=== PATIENT | female | born 1980 | race Caucasian/White ===

== ENCOUNTER → 2016-10-18 | Outpatient (CLI) | payer MEDICARE, OTHER ==
--- NOTE | 2016-10-19 12:09 | MM ---
Reason for exam: screening (asymptomatic). Baseline mammogram. History: Took hormonal contraceptives for 11 years. Physical Findings: Nurse did not find any significant physical abnormalities on exam. MG 3D Screening Mammo W/Cad Bilateral CC and MLO view(s) were taken. The breast tissue is heterogeneously dense. This may lower the sensitivity of mammography. There is no discrete abnormality. ASSESSMENT: Benign, BI-RAD 2 RECOMMENDATION: Routine screening mammogram of both breasts at age 41.
== END | disposition home or self-care (01) ==
LOC: RADMAMWWP 13:08
PROVIDERS: ATTEND Internal Medicine
DX: Z12.31 Encounter for screening mammogram for malignant neoplasm of breast (principal)
CPT/HCPCS: 77063; G0202

== ENCOUNTER → 2018-05-29 | Outpatient (CLI) | payer MEDICARE, OTHER ==
--- NOTE | 2018-05-29 12:00 | MR ---
EXAMINATION TYPE: MR lumbar spine wo con DATE OF EXAM: 05/29/2018 COMPARISON: 08/18/2014, 09/21/2011 HISTORY: Cervicalgia / PAIN IN NECK, TSP, LSP AND SHOULDER TECHNIQUE: T1 and T2 axial and sagittal images of the lumbar spine are submitted. FINDINGS: There is no abnormal signal seen within the visualized spinal cord or paraspinal soft tissu es. At L1-2 there is no disc herniation, canal stenosis, or foraminal encroachment. No degenerative disc disease. At L2-3 there is no disc herniation, canal stenosis, or foraminal encroachment. No degenerative disc disease. At L3-4 there is no disc herniation, canal stenosis, or foraminal encroachment. No degenerative disc disease. At L4-5 there is there is stable central disc bulging. Mild effacement of thecal sac but no central s tenosis. At L5-S1 there is stable central disc bulging with facet arthropathy but no canal stenosis. Neural fo ramina are patent bilaterally. IMPRESSION: 1. Stable disc bulging L5-S1 and L4-5 demonstrating no significant interval change. No canal stenosis or foraminal encroachment. EXAMINATION TYPE: MR cervical spine wo con DATE OF EXAM: 05/29/2018 COMPARISON: 05/29/2018 HISTORY: Cervicalgia / PAIN IN NECK, TSP, LSP AND SHOULDER TECHNIQUE: T1 sagittal and coronal, T2 sagittal, and gradient echo axial views of the cervical spine are submitted. FINDINGS: The cranial cervical junction is preserved. There is no abnormal signal seen within the sp inal cord or paraspinal soft tissues. At C2-3 there is No evidence for degenerative disc disease. No disc bulge/herniation or protrusion. N o Canal stenosis. Foramina are patent bilaterally At C3-4 there is No evidence for degenerative disc disease. No disc bulge/herniation or protrusion. N o Canal stenosis. Foramina are patent bilaterally At C4-5 there is No evidence for degenerative disc disease. No disc bulge/herniation or protrusion. N o Canal stenosis. Foramina are patent bilaterally At C5-6 there is Mild decreased signal and loss of height is noted compatible with degenerative disc disease. Mild posterior disc bulge without herniation seen. No evidence for central stenosis. Foramin a are patent bilaterally. At C6-7 there is Mild decreased signal and loss of height is noted compatible with degenerative disc disease. Mild posterior disc bulge without herniation seen. No evidence for central stenosis. Foramin a are patent bilaterally. At C7-T1 there is No evidence for degenerative disc disease. No disc bulge/herniation or protrusion. No Canal stenosis. Foramina are patent bilaterally. IMPRESSION: 1. Stable disc bulging and degenerative disc disease C5-6 and C6-C7 with no canal stenosis or foramin al encroachment. EXAMINATION TYPE: MR thoracic spine wo con DATE OF EXAM: 05/29/2018 COMPARISON: 09/11/2011 HISTORY: Cervicalgia / PAIN IN NECK, TSP, LSP AND SHOULDER TECHNIQUE: Noncontrast multiplanar multisequence imaging of the thoracic spine submitted.. FINDINGS: Alignment is anatomic. There is a mild dextroscoliotic curvature. Vertebral body height and disc sign al and interspace maintained. No compression deformities. No abnormal signal the visualized spinal cord. Next At T6-T7 there is minimal central disc bulging with no canal stenosis or discrete herniation. Neural foramina patent. At T8-T9 there is a focal right paracentral disc herniation. Results in mild right-sided foraminal en croachment. Remaining levels demonstrate no evidence of disc herniation, canal stenosis, or foraminal encroachmen t. IMPRESSION: 1. Small focal right paracentral disc herniation T8-T9 with mild right foraminal encroachment but no canal stenosis. 2. Minimal central disc bulging T6-T7. 3. Mild scoliotic curvature.
--- NOTE | 2018-05-29 12:17 | MR ---
EXAMINATION TYPE: MR shoulder RT wo con DATE OF EXAM: 05/29/2018 COMPARISON: None HISTORY: RIGHT SHOULDER PAIN TECHNIQUE: Multiplanar, multisequence imaging of the right shoulder is performed without contrast. FINDINGS: Exam severely limited due to motion artifact. There is hypertrophic change of the AC joint which does result in mass effect upon the supraspinatus muscle and tendon compatible with impingement. There is diffuse increased signal involving the distal 2 cm of the supraspinatus and infraspinatus te ndons compatible with tendinosis. There is a partial intrasubstance tear extending a length of 7 mm. Subscapularis tendon is intact Glenohumeral joint is maintained in the glenohumeral ligament are intact. Bicipital tendon is well situated the bicipital groove. No abnormal fluid surrounding the tendon. The tendon has normal appearance within the intracapsular portion. Suprascapular Notch has a normal appearance. Bony labrum intact. IMPRESSION: 1. Diffuse severe tendinopathy of the distal 2 cm of the infraspinatus and supraspinatus tendons with partial intrasubstance tears. There is no evidence of through thickness tear or retraction. 2. Impingement secondary to AC joint arthropathy.
== END | disposition home or self-care (01) ==
LOC: RADMRIMAIN 09:11
PROVIDERS: ATTEND Internal Medicine
DX: M50.222 Other cervical disc displacement at C5-C6 level (principal); M51.27 Other intervertebral disc displacement, lumbosacral region; M51.24 Other intervertebral disc displacement, thoracic region; M50.322 Other cervical disc degeneration at C5-C6 level; M41.84 Other forms of scoliosis, thoracic region; M75.101 Unspecified rotator cuff tear or rupture of right shoulder, not specified as traumatic; S46.811A Strain of other muscles, fascia and tendons at shoulder and upper arm level, right arm, initial encounter; M19.011 Primary osteoarthritis, right shoulder; M25.811 Other specified joint disorders, right shoulder; M75.91 Shoulder lesion, unspecified, right shoulder
CPT/HCPCS: 72141; 72146; 72148